=== PATIENT | male | born 1945 | race Caucasian/White ===

== ENCOUNTER 2021-01-03 12:16 | Day surgery (SDC) | payer MEDICARE, OTHER ==
[~2021-01-03] VITALS: Ht 175.3 cm; Wt 106.3 kg
[2021-01-03] VITALS (7 sets, daily range): BP systolic 101–119; BP diastolic 56–70
[~2021-01-03 12:16] MED LIST: ASPI-1265 PO; ATOR40TA7 PO; CITA20TA28 PO; HYT1T PO; LOSA100T13 PO; NOR5T PO; TRAZ-256 PO
[2021-01-03] MEDS ORDERED: diphenhydrAMINE 25mg capsule PO PRN (12:40)
[2021-01-03] MEDS ORDERED: normal saline 1,000 ML IV SCH (12:40)
[2021-01-03] MEDS ORDERED: LIDOcaine/PRILOcaine 5gm cream TP ONE (12:40)
[2021-01-03] MEDS ORDERED: LORazepam 0.5 MG tablet PO PRN (12:40)
[2021-01-03] MEDS ORDERED: famotidine 20mg tablet PO ONE (12:40)
[2021-01-03] MEDS ORDERED: METO50TA7 PO (13:03)
[2021-01-03] MEDS ORDERED: NIFE60TA2 PO (13:03)
[2021-01-03] MEDS ORDERED: CHOL100046 PO (13:03)
[2021-01-03 14:00] LABS: BASOPHILS # (AUTO) 0.1 X10'3 (0-0.2); BASOPHILS % (AUTO) 0.3 % (0-1); EOSINOPHILS % (AUTO) 0 % (0-6); HEMATOCRIT 47.4 % (42.0-52.0); LYMPHOCYTES # (AUTO) 1.1 X10'3 (1.1-4.8); LYMPHOCYTES % (AUTO) 5.4 % (21-51); MEAN CORPUSCULAR HEMOGLOBIN 31.5 PG (27.0-31.0); MEAN CORPUSCULAR HGB CONC 33.7 g/dL (33.0-36.5); MEAN CORPUSCULAR VOLUME 93.5 FL (78-98); MONOCYTES # (AUTO) 0.7 X10'3 (0-0.9); MONOCYTES % (AUTO) 3.6 % (2-12); NEUTROPHILS % (AUTO) 90.7 % (42-75); PLATELET COUNT 201 X10'3 (140-440); RED BLOOD COUNT 5.07 X10'6 (4.70-6.10); RED CELL DISTRIBUTION WIDTH 14.1 % (11.5-14.5); WHITE BLOOD COUNT 19.9 X10'3 (4.5-11.0)
[2021-01-03] MEDS ORDERED: nitroGLYCERIN-Tridil 50MG/D5W 250 ML IV ONE (14:07)
[2021-01-03] MEDS ORDERED: fentaNYL/PF 50MCG/1 ML 2ML syringe ONE (14:08)
[2021-01-03] MEDS ORDERED: verapamil 2.5 mg/ml inj IV ONE (14:08)
[2021-01-03] MEDS ORDERED: midazolam 1 mg/ML 2ml injection ONE (14:08)
[2021-01-03] MEDS ORDERED: LIDOcaine 1% (10mg/ml)w/preservative injection 20ml MDV ONE (14:08)
[2021-01-03] MEDS ORDERED: iohexol 350MG/ML 100ml bottle IV ONE (14:08)
[2021-01-03] MEDS ORDERED: heparin 1,000unit/ml 10ml vial 10 ML ONE (14:08)
[2021-01-03 14:16] LABS: ALBUMIN 4.3 G/DL (3.4-5.0); ANION GAP 12 (8-16); BLOOD UREA NITROGEN 30 MG/DL (7-18); BUN/CREATININE RATIO 17.6 (5.4-32.0); CALCIUM 9.5 MG/DL (8.5-10.1); CHLORIDE 106 MMOL/L (99-107); GLUCOSE 146 MG/DL (70-104); POTASSIUM 4.1 MMOL/L (3.5-5.1); SODIUM 142 MMOL/L (135-145); TOTAL CARBON DIOXIDE 23.6 MMOL/L (24-32); eGFR 39 ML/MIN
[2021-01-03 14:38] LABS: PARTIAL THROMBOPLASTIN TIME 26 SECONDS (22-32)
[2021-01-03] MEDS ORDERED: HYDROcodone/acetaminophen 10/325mg tab PO PRN (15:35)
[2021-01-03] MEDS ORDERED: nitroGLYCERIN 0.4mg SUBLingual tab SL PRN (15:35)
[2021-01-03] MEDS ORDERED: ondansetron/PF 4mg/2ml inj IV PRN (15:35)
[2021-01-03] MEDS ORDERED: OXAZEpam 15mg capsule PO PRN (15:35)
[2021-01-03] MEDS ORDERED: HYDROcodone/acetaminophen 5mg/325mg tablet PO PRN (15:35)
[2021-01-03] MEDS ORDERED: proCHLORperazine 10 MG/2 ml inj IV PRN (15:35)
== END 2021-01-03 17:20 | disposition home or self-care (01) ==
LOC: SSTAY O 12:16
PROVIDERS: ATTEND Internal Medicine Interventional Cardiology
DX: R94.39 Abnormal result of other cardiovascular function study (principal); I25.10 Atherosclerotic heart disease of native coronary artery without angina pectoris; I12.9 Hypertensive chronic kidney disease with stage 1 through stage 4 chronic kidney disease, or unspecified chronic kidney disease; N18.9 Chronic kidney disease, unspecified; G47.33 Obstructive sleep apnea (adult) (pediatric); I25.2 Old myocardial infarction; I65.22 Occlusion and stenosis of left carotid artery; N40.0 Benign prostatic hyperplasia without lower urinary tract symptoms; M19.90 Unspecified osteoarthritis, unspecified site; Z79.899 Other long term (current) drug therapy; Z79.01 Long term (current) use of anticoagulants; Z86.73 Personal history of transient ischemic attack (TIA), and cerebral infarction without residual deficits; Z95.0 Presence of cardiac pacemaker; Z87.442 Personal history of urinary calculi; Z87.440 Personal history of urinary (tract) infections; Z88.8 Allergy status to other drugs, medicaments and biological substances
CPT/HCPCS: 36415; 80048; 85025; 85610; 85730; 93005; 93458; 99152; C1769; C1894; J1644; J2001; J2250; J3010; J7030; Q0163; Q9967; A4620; A5120; J3490

== ENCOUNTER 2023-12-03 11:05 | Emergency (ER) | payer MEDICARE, OTHER ==
[~2023-12-03] VITALS: Ht 177.8 cm; Wt 100.9 kg
[~2023-12-03 11:05] MED LIST changes: +ATOR-411 PO; -ATOR40TA7 PO; +CHOL100046 PO; -CITA20TA28 PO; -HYT1T PO; +METO50TA7 PO; +NIFE60TA2 PO; -NOR5T PO
[2023-12-03 11:10] VITALS: TEMP 98.2
[2023-12-03 12:03] LABS: BASOPHILS % (AUTO) 0.6 % (0-1); EOSINOPHILS # (AUTO) 0.2 X10'3 (0-0.9); EOSINOPHILS % (AUTO) 2.5 % (0-6); HEMATOCRIT 47.3 % (42.0-52.0); LYMPHOCYTES # (AUTO) 1.8 X10'3 (1.1-4.8); LYMPHOCYTES % (AUTO) 23.5 % (21-51); MEAN CORPUSCULAR HGB CONC 33.8 g/dL (33.0-36.5); MEAN CORPUSCULAR VOLUME 91.9 FL (78-98); MEAN PLATELET VOLUME 9.8 FL (7.4-10.4); MONOCYTES # (AUTO) 0.9 X10'3 (0-0.9); MONOCYTES % (AUTO) 11.8 % (2-12); NEUTROPHILS # (AUTO) 4.6 X10'3 (1.8-7.7); NEUTROPHILS % (AUTO) 61.6 % (42-75); PLATELET COUNT 181 X10'3 (140-440); RED BLOOD COUNT 5.14 X10'6 (4.70-6.10); RED CELL DISTRIBUTION WIDTH 14.4 % (11.5-14.5); WHITE BLOOD COUNT 7.5 X10'3 (4.5-11.0)
[2023-12-03 12:25] LABS: ALBUMIN 3.9 G/DL (3.4-5.0); ANION GAP 10 (8-16); BLOOD UREA NITROGEN 20 MG/DL (7-18); BUN/CREATININE RATIO 14.7 (10.0-20.0); CALCIUM 9.4 MG/DL (8.5-10.1); CHLORIDE 105 MMOL/L (99-107); CREATININE 1.36 MG/DL (0.60-1.10); GLUCOSE 113 MG/DL (70-104); POTASSIUM 3.5 MMOL/L (3.5-5.1); PRO BRAIN NATRIURETIC PEPTIDE 153 PG/ML (0-450); SODIUM 143 MMOL/L (135-145); TOTAL CARBON DIOXIDE 27.7 MMOL/L (24-32); eCRCL 45 ML/MIN; eGFR 51 ML/MIN
[2023-12-03 14:43] LABS: BILIRUBIN,URINE NEGATIVE (Neg); CLARITY,URINE CLEAR (Clear); COLOR,URINE YELLOW (Yellow); GLUCOSE, URINE NEGATIVE (Neg); KETONES,URINE NEGATIVE (Neg); LEUKOCYTE ESTERASE ,URINE NEGATIVE (Neg); NITRITES, URINE NEGATIVE (Neg); OCCULT BLOOD,URINE NEGATIVE (Neg); PROTEIN,URINE TRACE mg/dl (Neg); UROBILINOGEN,URINE 0.2 E.U/dL (0.2-1.0)
[2023-12-03 14:50] LABS: UA COLLECTION TYPE URINAL
[2023-12-03 14:52] LABS: BACTERIA,URINE NONE SEEN /HPF (Neg); RBC,URINE NONE SEEN /HPF (0-2); SQUAMOUS EPITHELIAL CELL,UR FEW /LPF (FEW)
[2023-12-03 14:53] LABS: WBC,URINE 0-4 /HPF (0-4)
[2023-12-03] MEDS: normal saline 1000ML IV soln IVB ONE (15:40)
[2023-12-03 17:05] VITALS: BP 141/82; PULSE 60; RESP 14; O2SAT 93
== END 2023-12-03 17:07 | disposition home or self-care (01) ==
LOC: ER 11:05
DX: F44.89 Other dissociative and conversion disorders (principal); E86.0 Dehydration; I25.10 Atherosclerotic heart disease of native coronary artery without angina pectoris; I25.2 Old myocardial infarction; Z88.8 Allergy status to other drugs, medicaments and biological substances; Z79.82 Long term (current) use of aspirin; Z79.899 Other long term (current) drug therapy; Z86.73 Personal history of transient ischemic attack (TIA), and cerebral infarction without residual deficits
CPT/HCPCS: 36415; 71045; 80048; 81001; 83605; 83880; 85025; 99284; J7030